=== PATIENT | male | born 1985 | race Two or more races ===

== ENCOUNTER 2019-04-03 14:12 | Emergency (ER) | payer OTHER ==
[2019-04-03 14:21] VITALS: BP 139/58
--- NOTE | 2019-04-03 15:59 | ED Physician Documentation ---
History of Present Illness - Stated complaint Stated Complaint: BODY RASH - Chief complaint Chief Complaint: Wound - Additonal information Additional information: This is a 33-year-old male presents with some red itchy spots on his leg for l ast 48 hours. Patient moved into new apartment on Sunday, and he states there are no pets in his apartment, but there are some in the apartment complex. He began developed some itchy spots 2 days ago, these are on his bilateral legs, the ones that initially started 2 days ago are fading away but but he has some new ones that appeared today as well. The spots are present only on his lower legs, they are not affecting the soles of his feet the palms of his hand, or any mucous membranes. They stopped around the mid thigh. No fever, chills. Patient has a history of allergic reaction to bedbug bites, but he states that these do not appear similar to his past bedbug bites.He lives with his , who has not had any bites or rash. Review of Systems Throat: denies: Oral lesions / sores Skin: reports: Rash Immunocompromised: denies: Immunocompromised PD PAST MEDICAL HISTORY - Past Medical History Derm: Other (Allergic reaction to beg bugs) - Present Medications Home Medications: Ambulatory Orders Medication Instructions Recorded Confirmed Hydrocortisone 1% Oint 28 gm TP TID PRN #1 tube 04/03/19 [Hydrocortisone] - Allergies Allergies/Adverse Reactions: Allergies Allergy/AdvReac Type Severity Reaction Status Date / Time No Known Drug Allergies Allergy Verified 04/03/19 14:16 - Living Situation Living Situation: reports: With spouse/s.o. Living Arrangement: reports: At home - Family History Family history: reports: Non contributory - Immunizations Immunizations are current?: Yes PD ED PE NORMAL - Vitals Vital signs reviewed: Yes - General General: Alert and oriented X 3, No acute distress - HEENT HEENT: Atraumatic, PERRL, Pharynx benign - Neck Neck: Supple, no meningeal sign - Cardiac Cardiac: RRR - Respiratory Respiratory: No respiratory distress - Abdomen Abdomen: Non distended - Derm Derm: Other (There around 7 scattered slightly raised erythematous papules that are 3 to 4 mm in diameter. There is no central necrosis or crusting, no purulence. No blisters. No lesions are affecting the head neck thorax or arms. None seen on the palms or soles.) - Extremities Extremities: No deformity - Neuro Neuro: Alert and oriented X 3 - Psych Psych: Normal mood, Normal affect Results - Vitals Vitals: Vital Signs - 24 hr 04/03/19 14:17 Temperature 36.7 C Heart Rate 77 Respiratory 15 Rate Blood Pressure 139/58 H O2 Saturation 99 PD MEDICAL DECISION MAKING - ED course Complexity details: considered differential (insect bite, bed bugs, fleas, vasculitis) ED course: On exam patient has benign-appearing papules, given that they are itchy and that his initial lesions are fading I have a high suspicion this are insect bites. They do not appear to be vasculitic, no risk factors or distribution to suggest syphilis or other more nefarious cause. Fleas are likely given he moved into a new apartment and the lesions are scattered on his lower legs. I discussed supportive care, carefully checking his apartment for insects, and PCP follow up. He has an appointment in a few days for a recheck. I discussed return precautions and pt was discharged home. Departure - Departure Disposition: 01 Home, Self Care Clinical Impression: Insect bite Qualifiers: Encounter type: initial encounter Site of insect bite: lower leg Laterality: unspecified laterality Qualified Code(s): S80.869A - Insect bite (nonvenomous), unspecified lower leg, initial encounter Condition: Good Instructions: ED Bite Insect Follow-Up: Your,PCP [Other] Prescriptions: Hydrocortisone 1% Oint [Hydrocortisone] 28 gm TP TID PRN #1 tube PRN Reason: Itching Comments: You were seen today for red itchy spots on your legs. These appear to be insect bites. They may be flea bites. Please check your apartment for signs of bedbugs and fleas. Please follow-up with your regular doctor as soon as possible, as scheduled on Sunday. You may apply hydrocortisone to the itchy spots, you may also take Benadryl for itching as well. If you develop redness streaking up your leg, fever, or any other concerning symptoms return to the emergency department. Discharge Date/Time: 04/03/19 16:54
== END 2019-04-03 16:54 | disposition home or self-care (01) ==
LOC: ED 14:12
DX: S80.862A Insect bite (nonvenomous), left lower leg, initial encounter (principal); S80.861A Insect bite (nonvenomous), right lower leg, initial encounter; W57.XXXA Bitten or stung by nonvenomous insect and other nonvenomous arthropods, initial encounter; Z91.038 Other insect allergy status
CPT/HCPCS: 99282; 99284